=== PATIENT | male | born 1970 | race Caucasian/White ===

== ENCOUNTER 2017-09-22 16:47 | Emergency (ER) | payer MEDICAID, OTHER ==
[2017-09-22] MEDS: predniSONE 20 MG TAB PO (19:16)
[2017-09-22] MEDS: ALBUTEROL 0.083% (NEB) 2.5 MG/3 ML AMP HHN (19:33)
== END 2017-09-22 20:14 | disposition home or self-care (01) ==
LOC: FTE 16:47
DX: J06.9 Acute upper respiratory infection, unspecified (principal)
CPT/HCPCS: 71045; 94664; 99284-25